=== PATIENT | male | born 1995 | race Caucasian/White ===

== ENCOUNTER 2019-09-01 02:22 | Emergency (ER) | payer SELFPAY ==
[~2019-09-01] VITALS: Ht 180.3 cm; Wt 86.2 kg
[2019-09-01 02:44] VITALS: BP 129/60
[2019-09-01] MEDS ORDERED: SMZ/TMP 800/160MG TABLET. PO ONE (03:15)
[2019-09-01] MEDS ORDERED: SULF1TAB24 PO (03:19)
[2019-09-01] MEDS ORDERED: TRAM50TA PO (03:19)
--- NOTE | 2019-09-01 03:20 | PHYS DOC ---
Past Medical History Past Medical History: No Pertinent History Past Surgical History: Other Additional Past Surgical Histo: left arm cyst removal Smoking Status: Current Every Day Smoker Alcohol Use: None Drug Use: None General Adult EDM: Chief Complaint: ABSCESS HPI: HPI: Patient is a 24 year old male who presents with complaint of abscess to his left inner thigh that started a couple of weeks ago. Patient states that it is progressively gotten larger since onset. He denies any drainage from the area. He rates pain as moderate. [] Review of Systems: Review of Systems: Constitutional: Denies fever or chills. [] Respiratory: Denies cough or shortness of breath. [] Cardiovascular: Denies chest pain or edema. [] Integument: Positive abscess. [] Neurologic: Denies headache, focal weakness or sensory changes. [] Heart Score: Risk Factors: Risk Factors: DM, Current or recent (<one month) smoker, HTN, HLP, family history of CAD, obesity. Risk Scores: Score 0 - 3: 2.5% MACE over next 6 weeks - Discharge Home Score 4 - 6: 20.3% MACE over next 6 weeks - Admit for Clinical Observation Score 7 - 10: 72.7% MACE over next 6 weeks - Early Invasive Strategies Allergies: Allergies: Allergies Coded Allergies Type Severity Reaction Last Updated Verified amoxicillin Allergy Intermediate Rash 09/01/19 Yes Physical Exam: PE: Constitutional: Well developed, well nourished, no acute distress, non-toxic appearance. [] Cardiovascular: Regular rate and rhythm [] Lungs & Thorax: Bilateral breath sounds clear to auscultation [] Skin: Left inner thigh demonstrates an area of warmth, erythema, induration and central fluctuance, consistent with abscess, measuring 2 cm. [] Neurologic: Alert and oriented X 3, no focal deficits noted. [] Current Patient Data: Vital Signs: Vital Signs Date Time Temp Pulse Resp B/P (MAP) Pulse Ox O2 Delivery O2 Flow Rate FiO2 09/01/19 02:44 98.3 87 20 97 Room Air 98.3 EKG: EKG: [] Radiology/Procedures: Radiology/Procedures: [] Course & Med Decision Making: Course & Med Decision Making Pertinent Labs and Imaging studies reviewed. (See chart for details) Abscess cleaned and draped in normal sterile fashion and after anesthetizing with 1% lidocaine, abscess was incised with #11 blade scalpel and small amount of purulent drainage was expressed. Dressing placed over wound and patient discharged with antibiotics. Dragon Disclaimer: Dragon Disclaimer: This electronic medical record was generated, in whole or in part, using a voice recognition dictation system. Departure Departure Impression: Primary Impression: Abscess Disposition: 01 HOME, SELF-CARE Condition: STABLE Referrals: NO PCP (PCP) Patient Instructions: Abscess, Abscess, Care After Scripts Tramadol Hcl (TRAMADOL HCL) 50 Mg Tablet 50 MG PO Q6HRS PRN for PAIN, #12 TAB Prov: DONG AVILA Jr. DO 09/01/19 Sulfamethoxazole/Trimethoprim (BACTRIM DS TABLET) 1 Each Tablet 1 TAB PO BID for 10 Days, #20 TAB 0 Refills Prov: DONG AVILA Jr. DO 09/01/19 Justicifation of Admission Dx: Justifications for Admission: Justification of Admission Dx: N/A DONG AVILA Jr. DO Sep 01, 2019 03:19
== END 2019-09-01 03:23 | disposition home or self-care (01) ==
LOC: ER 02:22
DX: L02.416 Cutaneous abscess of left lower limb (principal); F17.200 Nicotine dependence, unspecified, uncomplicated; Z88.1 Allergy status to other antibiotic agents
CPT/HCPCS: 10060; 99283

== ENCOUNTER 2020-12-11 15:50 | Emergency (ER) | payer SELFPAY ==
[~2020-12-11 15:50] MED LIST: SULF1TAB24 PO; TRAM50TA PO
== END 2020-12-11 17:45 | disposition left against medical advice (07) ==
LOC: ER 15:50
DX: R05 Cough (principal); R11.10 Vomiting, unspecified; R10.9 Unspecified abdominal pain; Z53.21 Procedure and treatment not carried out due to patient leaving prior to being seen by health care provider

== ENCOUNTER 2021-05-06 17:06 | Emergency (ER) | payer SELFPAY ==
[~2021-05-06] VITALS: Ht 180.3 cm; Wt 96.9 kg
[2021-05-06] MEDS ORDERED: KETOROLAC 60 MG/2 ML VIAL. IM ONE (17:30)
--- NOTE | 2021-05-06 17:45 | RAD ---
EXAM: 3 views left index finger DATE: 05/06/2021 5:24 PM INDICATION: Reason: digit 2 distal phalanx crush injury / Spl. Instructions: / History: . COMPARISON: No Prior FINDINGS/ IMPRESSION: 1. Longitudinal fracture through the distal phalanx of the index finger with moderate associated sof t tissue swelling. No intra-articular extension. Metallic density projects between the base of the in dex and long finger, possibly retained foreign body. Electronically signed by: Donaldo Jj MD (05/06/2021 5:43 PM) UMAIR
--- NOTE | 2021-05-06 17:55 | PHYS DOC ---
Past Medical History Past Medical History: No Pertinent History (JOAN INGRAM) Past Surgical History: Other Additional Past Surgical Histo: left arm cyst removal (JOAN INGRAM) Smoking Status: Current Every Day Smoker Alcohol Use: Occasionally Drug Use: None (JOAN INGRAM) General Adult EDM: Chief Complaint: FINGER INJURY HPI: HPI: Patient is a 25 year old male who presents with left second digit pain. Patient states that last night, he crushed the end of his index finger on the left hand with a hammer. He now reports he has a blood blister and "throbbing" pain. Patient denies any other pain or injury. He has no other complaints at this time. (JOAN INGRAM) Review of Systems: Review of Systems: ROS negative or noncontributory except as mentioned in HPI. (JOAN INGRAM) Heart Score: C/O Chest Pain: No (JOAN INGRAM) Current Medications: Current Medications Medications (Trade) Dose Ordered Sig/Prateek Start Time Stop Time Status Last Admin Dose Admin Ketorolac Tromethamine (Toradol Im) 60 mg 1X ONCE 05/06/21 17:30 05/06/21 17:31 DC 05/06/21 17:32 60 MG (JOAN INGRAM) Allergies: Allergies: Allergies Coded Allergies Type Severity Reaction Last Updated Verified amoxicillin Allergy Intermediate Rash 09/01/19 Yes (JOAN INGRAM) Physical Exam: PE: Constitutional: Well developed, well nourished, disheveled appearance, no acute distress, non-toxic appearance. HENT: Normocephalic, atraumatic, bilateral external ears normal, nose normal. Eyes: EOMI, conjunctiva normal, no discharge. Neck: Normal range of motion, no stridor. Skin: Warm, dry, no erythema, no rash. Extremities: Bilateral hands are agree stained and dirty, blood-filled vesicle noted at the fingertip without subungual hematoma. Extremities otherwise no tenderness, no cyanosis, no clubbing, ROM intact, no edema. Neurologic: Alert and oriented x4, no focal deficits noted. (JOAN INGRAM) Current Patient Data: Vital Signs: Vital Signs Date Time Temp Pulse Resp B/P (MAP) Pulse Ox O2 Delivery O2 Flow Rate FiO2 05/06/21 17:18 98.0 79 18 134/93 (107) 98 Room Air 98.0 (JOAN INGRAM) Radiology/Procedures: Radiology/Procedures: PROCEDURE: FINGER(S) LEFT EXAM: 3 views left index finger DATE: 05/06/2021 5:24 PM INDICATION: Reason: digit 2 distal phalanx crush injury / Spl. Instructions: / History: . COMPARISON: No Prior FINDINGS/ IMPRESSION: 1. Longitudinal fracture through the distal phalanx of the index finger with moderate associated soft tissue swelling. No intra-articular extension. Metallic density projects between the base of the index and long finger, possibly retained foreign body. Electronically signed by: Donaldo Jj MD (05/06/2021 5:43 PM) [facility] (JOAN INGRAM) Course & Med Decision Making: Course & Med Decision Making Pertinent Labs and Imaging studies reviewed. (See chart for details) (JOAN INGRAM) Course & Med Decision Making I was available for consultation for this patient, this patient's care, radiographic imaging or clinical exam findings were not discussed with me in any capacity. The patient was discharged in the chart was sent to me many hours after the patient was discharged. I would have been happy to see this patient, guide medical decision making and discharge instructions, but this was not done. (VIRIDIANA GALEANO DO) Jyotsna Disclaimer: Jyotsna Disclaimer: This electronic medical record was generated, in whole or in part, using a voice recognition dictation system. (JOAN INGRAM) Splinting Patient informed of findings. Aluminum digit splint applied by HELLEN Chávez. The splint is checked by myself, with probe stabilization of the injury. Distal capillary refill less than 2 seconds and distal neurologic function intact. (JOAN INGRAM) Departure Departure Impression: Primary Impression: Closed fracture of distal phalanx of left index finger Qualified Codes: S62.661A - Nondisplaced fracture of distal phalanx of left index finger, initial encounter for closed fracture Disposition: HOME / SELF CARE / HOMELESS Condition: STABLE Referrals: NO PCP (PCP) Patient Instructions: Crush Injury, Fingers or Toes, [id number], Finger Fracture, [id number] Additional Instructions: EMERGENCY DEPARTMENT GENERAL DISCHARGE INSTRUCTIONS Thank you for coming to [facility] Emergency Department (ED) today and trusting us with you care. We trust that you had a positive experience in our Emergency Department. If you wish to speak to the department management, you may call the director at . YOUR FOLLOW UP INSTRUCTIONS ARE FOLLOWS: 1. Follow up with your primary care doctor. If you do not have a primary doctor, please ask for a resource list of physicians or clinics that may be able to assist you with follow up care. 2. The emergency provider has interpreted your imaging studies, if any were ordered. The radiology customer specialist also reviewed them. If there is a change in the findings, you will be notified in 48 hours when at all possible. 3. If a lab test or culture has been done, your results will be reviewed and you will be notified if you need a change in treatment. 4. Follow instructions verbalized to you and refer to the printouts if needed. ADDITIONAL INSTRUCTIONS AND INFORMATION: 1. Your care today has been supervised by a physician who is specially trained in emergency care. Many problems require more than one evaluation for a complete diagnosis and treatment. We recommend that you schedule your follow up appointment as recommended to ensure complete treatment of you illness or injury. If you are unable to obtain follow up care and continue to have a problem, or if your condition worsens, we recommend that you return to the ED. 2. We are not able to safely determine your condition over the phone nor are we able to give sound medical advice over the phone. For these safety reasons, if you call for medical advice we will ask you to come to the ED for further evaluation. 3. If you have any questions regarding these discharge instructions please call the ED at . SAFETY INFORMATION: In the interest of safety, wellness, and injury prevention; we encourage you to wear your seat belt, if you smoke; quite smoking, and we encourage family to use a protective helmet for bicycling and other sporting events that present an increased risk for head injury. IF YOUR SYMPTOMS WORSEN OR NEW SYMPTOMS DEVELOP, OR YOU HAVE CONCERNS ABOUT YOUR CONDITION; OR IF YOUR CONDITION WORSENS WHILE YOU ARE WAITING FOR YOUR FOLLOW UP APPOINTMENT; EITHER CONTACT YOUR PRIMARY CARE DOCTOR, THE PHYSICIAN WHOSE NAME AND NUMBER YOU WERE GIVEN, OR RETURN TO THE ED IMMEDIATELY. JOAN INGRAM May 06, 2021 17:55 VIRIDIANA GALEANO DO May 07, 2021 08:18
[2021-05-06 18:20] VITALS: BP 136/93
== END 2021-05-06 18:26 | disposition home or self-care (01) ==
LOC: ER 17:06
DX: S62.661A Nondisplaced fracture of distal phalanx of left index finger, initial encounter for closed fracture (principal); F17.200 Nicotine dependence, unspecified, uncomplicated; Z88.1 Allergy status to other antibiotic agents; W23.0XXA Caught, crushed, jammed, or pinched between moving objects, initial encounter; Y93.89 Activity, other specified; Y92.89 Other specified places as the place of occurrence of the external cause; Y99.8 Other external cause status
CPT/HCPCS: 29130; 73140; 96372; 99283; J1885